=== PATIENT | male | born 1990 | race Caucasian/White ===

== ENCOUNTER 2017-09-12 13:55 | Day surgery (SDC) | payer OTHER ==
[2017-09-12] MEDS ORDERED: DIAZEPAM 5 MG TAB ONE (14:32)
[2017-09-12] MEDS ORDERED: BUPIVACAINE HCL 0.25% MPF 30 ML SOL INFIL ONE (15:25)
[2017-09-12] MEDS ORDERED: DEXAMETHASONE SOD PHOS PF 10 MG/ML SOL IJ ONE (15:25)
[2017-09-12 15:34] VITALS: TEMP 99.8
[2017-09-12 15:50] VITALS: BP 119/76; PULSE 77; RESP 18; O2SAT 97
== END 2017-09-12 16:07 | disposition home or self-care (01) | DRG 552 ==
LOC: SURG 13:55
PROVIDERS: ATTEND Nurse Anesthetist, Certified Registered
DX: M51.17 Intervertebral disc disorders with radiculopathy, lumbosacral region (principal)
CPT/HCPCS: A9270-GY; J1100

== ENCOUNTER 2018-09-16 05:19 | Emergency (ER) | payer MEDICAID ==
[2018-09-16 05:29] VITALS: TEMP 97.3
[2018-09-16] MEDS ORDERED: SODIUM CHLORIDE 0.9% FLUSH 10 ML SOL IV PRN (05:30)
[2018-09-16] MEDS ORDERED: MORPHINE SULFATE 10 MG/ML SOL ONE (05:37)
[2018-09-16] MEDS ORDERED: MORPHINE SULFATE 10 MG/ML SOL IV ONE (05:41)
[2018-09-16] MEDS ORDERED: SOLUMEDROL 125 MG/2 ML 125 MG/2 ML PDS IV ONE (05:49)
[2018-09-16] MEDS ORDERED: SOLUMEDROL 125 MG/2 ML 125 MG/2 ML PDS ONE ×2 (05:52→05:53)
[2018-09-16] MEDS ORDERED: HYDROMORPHONE 1 MG/ML SYRINGE IV PRN (06:10)
[2018-09-16] MEDS ORDERED: HYDROMORPHONE 1 MG/ML SYRINGE ONE (06:11)
[2018-09-16] MEDS ORDERED: DIAZEPAM 5 MG TAB PO ONE (06:19)
[2018-09-16] MEDS ORDERED: SODIUM CHLORIDE 0.9% 1000ML 1,000 ML IV SCH (06:30)
[2018-09-16] MEDS ORDERED: DIAZEPAM 5 MG TAB ONE (06:31)
[2018-09-16 07:36] VITALS: RESP 16
[2018-09-16 07:47] LABS: BASOPHILS % (AUTO) 0 % (0-3); EOSINOPHILS % (AUTO) 1 % (0-9); HEMATOCRIT 46 % (39-53); HEMOGLOBIN 15.2 gm/dl (13.5-17.7); LYMPHOCYTES % (AUTO) 19.9 % (10-50); MEAN CORPUSCULAR HGB CONC 32.9 gm/dl (32.0-36.0); MEAN CORPUSCULAR VOLUME 94 fL (80-100); MONOCYTES % (AUTO) 2.7 % (0-12); NEUTROPHILS % (AUTO) 76.4 % (37-80)
[2018-09-16 07:50] VITALS: O2SAT 96
[2018-09-16 08:01] LABS: ALBUMIN 3.7 gm/dl (3.4-5.0); BILIRUBIN,TOTAL 0.4 mg/dl (0.2-1.0); CALCIUM 8.6 mg/dl (8.5-10.1); CARBON DIOXIDE 22.8 mEq/L (21-32); CREATININE 1.19 mg/dl (0.80-1.30); MAGNESIUM 1.7 mg/dl (1.8-2.4); TOTAL PROTEIN 7.6 gm/dl (6.4-8.2)
[2018-09-16 08:02] VITALS: PULSE 70
[2018-09-16 08:22] VITALS: BP 158/88
== END 2018-09-16 08:34 | disposition home or self-care (01) | DRG 552 ==
LOC: ED 05:19
DX: M51.17 Intervertebral disc disorders with radiculopathy, lumbosacral region (principal)
CPT/HCPCS: 36415; 72131; 80053; 83735; 85025; 96365; 96366; 96374; 96375; 99283; 99285; J2270; J2930; A9270-GY; J1170

== ENCOUNTER 2018-10-23 13:44 | Day surgery (SDC) | payer MEDICAID ==
[2018-10-23] MEDS ORDERED: BUPIVACAINE HCL 0.25% MPF 30 ML SOL INFIL ONE (14:28)
[2018-10-23] MEDS: DEXAMETHASONE SOD PHOS PF 10 MG/ML SOL IJ ONE ×2 (14:45→14:56)
[2018-10-23 15:44] VITALS: BP 133/86; PULSE 86; RESP 18; TEMP 99.1; O2SAT 97
== END 2018-10-23 15:30 | disposition home or self-care (01) | DRG 552 ==
LOC: SURG 13:44
PROVIDERS: ATTEND Nurse Anesthetist, Certified Registered
DX: M54.5 Low back pain (principal); M47.16 Other spondylosis with myelopathy, lumbar region; M12.88 Other specific arthropathies, not elsewhere classified, other specified site
CPT/HCPCS: J1100